=== PATIENT | female | born 1970 | race Two or more races ===

== ENCOUNTER → 2025-05-20 | Outpatient (CLI) | payer MEDICAID, SELFPAY ==
--- NOTE | 2025-05-20 16:14 | XR_ITS ---
Examination: Bilateral hands, 6 views. Technique: AP, Oblique, Lateral each hand total 6 views Date and time of exam: May 20, 2025, 1618 hours INDICATIONS: Bilateral hand and wrist pain and numbness beginning 3 months ago Findings: Mild juxta articular bone demineralization No fracture or dislocation involving either hand Mild bilateral osteoarthritis distal interphalangeal joints second through fifth digits and interphalangeal joint first digits as well as first carpometacarpal joints No erosive arthritis No foreign bodies No avascular necrosis IMPRESSION: Mild osteoarthritis as above
--- NOTE | 2025-05-20 16:14 | XR_ITS ---
EXAMINATION: Bilateral wrist 6 views TECHNIQUE: AP oblique lateral each wrist total 6 views Date and time: May 20, 2025, 1625 hours INDICATIONS: Bilateral wrist pain and numbness beginning 3 months ago. FINDINGS: Mild osteopenia. Bilateral mild osteoarthritis navicular trapezium and first carpometacarpal joints No fractures or avascular necrosis No erosive arthritis IMPRESSION: Mild osteoarthritis
== END | disposition home or self-care (01) ==
PROVIDERS: PCP Family Medicine
DX: M18.0 Bilateral primary osteoarthritis of first carpometacarpal joints (principal); M19.042 Primary osteoarthritis, left hand; M19.041 Primary osteoarthritis, right hand; M19.032 Primary osteoarthritis, left wrist; M19.031 Primary osteoarthritis, right wrist
CPT/HCPCS: 73110; 73130